=== PATIENT | female | born 1990 | race African-American/Black ===

== ENCOUNTER 2016-07-08 14:49 | Emergency (ER) | payer OTHER ==
[~2016-07-08] VITALS: Ht 162.6 cm; Wt 68.9 kg
[2016-07-08 17:46] VITALS: BP 137/89
[2016-07-08] MEDS ORDERED: IBUPROFEN 800 MG TAB PO ONE (18:30)
== END 2016-07-08 18:58 | disposition home or self-care (01) ==
LOC: ER 15:03
DX: S00.83XA Contusion of other part of head, initial encounter (principal); S60.512A Abrasion of left hand, initial encounter; S60.511A Abrasion of right hand, initial encounter; S69.90XA Unspecified injury of unspecified wrist, hand and finger(s), initial encounter; Z88.5 Allergy status to narcotic agent; Y04.0XXA Assault by unarmed brawl or fight, initial encounter; Y93.89 Activity, other specified; Y99.8 Other external cause status; Y92.89 Other specified places as the place of occurrence of the external cause

== ENCOUNTER 2016-12-31 20:07 | Emergency (ER) | payer MEDICAID, OTHER ==
[~2016-12-31] VITALS: Ht 162.6 cm; Wt 77.1 kg
[2016-12-31 20:21] VITALS: BP 148/96
== END 2016-12-31 22:10 | disposition home or self-care (01) ==
LOC: ER 20:15
DX: S93.402A Sprain of unspecified ligament of left ankle, initial encounter (principal); Z88.6 Allergy status to analgesic agent; W01.0XXA Fall on same level from slipping, tripping and stumbling without subsequent striking against object, initial encounter; Y93.89 Activity, other specified; Y99.8 Other external cause status; Y92.89 Other specified places as the place of occurrence of the external cause
CPT/HCPCS: 73610